=== PATIENT | male | born 1990 | race Two or more races ===

== ENCOUNTER 2024-07-22 23:04 | Emergency (ER) | payer OTHER ==
[~2024-07-22] VITALS: Ht 165.1 cm; Wt 53.2 kg
[2024-07-22] MEDS ORDERED: AZIT-43 PO (23:59)
[2024-07-22] MEDS ORDERED: PRED20TA2 PO (23:59)
--- NOTE | 2024-07-23 | ED.PDOC ---
SOB-HPI HPI Comments 34-YEAR-OLD MALE PRESENTS TO ER WITH COMPLAINTS OF COUGH X 10 DAYS. PATIENT REPORTS HE HAS BEEN EXPERIENCING PRODUCTIVE COUGH WITH YELLOW PHLEGM ALONG WITH CONGESTION X3 DAYS. REPORTS HE HAS BEEN TAKING [id number] MUCINEX FOR HIS SYMPTOMS WITHOUT RELIEF. DENIES ANY PAIN. PATIENT ALSO REPORTS HE HAS NOTICED INTERMITTENT EPISODES OF BLOOD-TINGED SPUTUM X3 DAYS. PATIENT PRESENTS TO ER AMBULATORY ON ARRIVAL, WITH STEADY GAIT, IN NO DISTRESS. DENIES FEVER, SHORTNESS OF BREATH, CHEST PAIN, PALPITATIONS, RECENT TRAVEL, HEADACHE, DIZZINESS, KNOWN EXPOSURE TO SICK CONTACTS, FATIGUE, NIGHT SWEATS, NAUSEA/VOMITING, SORE THROAT, NOSEBLEED, ABDOMINAL PAIN OR ANY FURTHER SYMPTOMS/COMPLAINTS Chief Complaint: Cough Time Seen by MD: 23:20 Primary Care Provider: UNKNOWN Reviewed notes: Nurses Notes, Medications, Allergies Information Source: Patient Mode of Arrival: Ambulatory Past Medical History PAST MEDICAL HISTORY: Denies Surgical History: Denies all surgeries Family History Family History: Unknown Social History Smoker: Other (NICOTINE VAPE) Alcohol: Denies ETOH Use Drugs: Marijuana Lives In: Home Constitutional: denies: chills, diaphoresis, fatigue, fever, malaise, sweats, weakness, others EENTM: reports: others (As stated in HPI) Respiratory: reports: others (As stated in HPI) Cardiovascular: denies: chest pain, dizzy spells, diaphoresis, Dyspnea on exertion, edema, irregular heart beat, left arm pain, lightheadedness, palpitations, PND, syncope, others Gastrointestinal: denies: abdomen distended, abdominal pain, blood streaked bowels, constipated, diarrhea, dysphagia, difficulty swallowing, hematemesis, melena, nausea, poor appetite, poor fluid intake, rectal bleeding, rectal pain, vomiting, others Genitourinary: denies: burning, dysuria, flank pain, frequency, hematuria, incontinence, penile discharge, penile sore, pain, testicle pain, testicle swelling, urgency, others Neurological: denies: dizziness, fainting, headache, left sided numbness, left sided weakness, numbness, paresthesia, pre-existing deficit, right sided numbness, right sided weakness, seizure, speech problems, tingling, tremors, weakness, others Musculoskeletal: denies: back pain, gout, joint pain, joint swelling, muscle pain, muscle stiffness, neck pain, others Integumetry: denies: bruises, change in color, change in hair/nails, dryness, laceration, lesions, lumps, rash, wounds, others Allergic/Immunocompromised: denies: Difficulty Healing, Frequent Infections, Hives, Itching, others Hematologic/Lymphatic: denies: anemia, blood clots, easy bleeding, easy bruising, swollen glands, others Endocrine: denies: excessive hunger, excessive sweating, excessive thirst, excessive urination, flushing, intolerance to cold, intolerance to heat, unexplained weight gain, unexplained weight loss, others Psychiatric: denies: anxiety, bipolar disorder, depression, hopeless, panic disorder, schizophrenia, sleepless, suicidal, others Physical Exam General Appearance: No Apparent Distress HEENT: Normal ENT Inspection, PERRL/EOMI, Pharynx Normal, TMs Normal Neck: Full Range of Motion, Non-Tender, Normal Respiratory: Chest Non-Tender, Lungs Clear, No Accessory Muscle Use, No Respiratory Distress, Normal Breath Sounds Cardiovascular: No Murmur, No Gallop, Regular Rate/Rhythm Breast Exam: Deferred Gastrointestinal: NOT DONE Genitalia: Deferred Pelvic: Deferred Rectal: Deferred Extremities: Normal capillary refill, Normal range of motion Neurologic: Alert, ink blender II-XII nml as Tested, No Motor Deficits, Normal Affect, Normal Mood, No Sensory Deficits Cerebellar Function: Normal Reflexes: Normal Skin: Dry, Normal Color, Warm Peripheral Pulses: 2+ Radial (R), 2+ Radial (L), 2+ Brachial (R), 2+ Brachial (L) Lymphatic: No Adenopathy Was a procedure done? Was a procedure done?: No Sedation Sedation?: No Differential Dx Differential Diagnosis: Pneumonia, Pulmonary Embolism, Respiratory Distress, Pharyngitis X-Ray, Labs, Meds, VS Vital Signs Date Time Temp Pulse Resp B/P (MAP) Pulse Ox O2 Delivery O2 Flow Rate FiO2 07/23/24 00:02 78 16 97 Room Air 07/23/24 00:02 99.0 78 16 144/90 (108) 97 99.0 07/22/24 23:39 99.0 78 16 144/90 (108) 97 07/22/24 23:39 16 97 Room Air* 0 21 Lab Test 07/23/24 00:08 Range/Units White Blood Count 6.7 4.4-10.8 10^3/uL Red Blood Count 5.23 4.5-5.90 10^6/uL Hemoglobin 16.0 13.5-17.5 g/dL Hematocrit 46.3 41.0-53.0 % Mean Corpuscular Volume 88.6 80.0-100.0 fL Mean Corpuscular Hemoglobin 30.5 28.0-32.0 pg Mean Corpuscular Hemoglobin Concent 34.4 32.0-36.0 g/dL Red Cell Distribution Width 12.5 11.8-14.3 % Platelet Count 270 140-450 10^3/uL Mean Platelet Volume 8.2 6.9-10.8 fL Neutrophils (%) (Auto) 63.3 37.0-80.0 % Lymphocytes (%) (Auto) 27.7 10.0-50.0 % Monocytes (%) (Auto) 7.9 0.0-12.0 % Eosinophils (%) (Auto) 0.7 0.0-7.0 % Basophils (%) (Auto) 0.4 0.0-2.0 % Neutrophils # (Auto) 4.2 1.6-8.6 10 ^3/uL Lymphocytes # (Auto) 1.9 0.4-5.4 10 ^3/uL Monocytes # (Auto) 0.5 0-1.3 10 ^3/uL Eosinophils # (Auto) 0 0-0.8 10 ^3/uL Basophils # (Auto) 0 0-0.2 10 ^3/uL Nucleated Red Blood Cells 0.0 % D-Dimer, Quantitative < 0.19 0.0-0.49 mg/L FEU Sodium Level 143 136-145 mmol/L Potassium Level 3.7 3.5-5.1 mmol/L Chloride Level 109 H 98-107 mmol/L Carbon Dioxide Level 29 20-31 mmol/L Anion Gap 5 5-15 Blood Urea Nitrogen 13 9-23 mg/dL Creatinine 0.69 L 0.700-1.30 mg/dL Glomerular Filtration Rate Calc 126 >90 mL/min BUN/Creatinine Ratio 18.8 10.0-20.0 Serum Glucose 108 H 74-106 mg/dL Calcium Level 9.8 8.7-10.4 mg/dL Current Medications Medications (Trade) Dose Ordered Sig/Joycelyn Route Start Time Stop Time Status Last Admin Ceftriaxone Sodium (Rocephin) 1,000 mg ONCE ONCE IM 07/23/24 00:00 07/23/24 00:02 DC 07/23/24 00:15 Methylprednisolone Sodium Succinate (Solu Medrol) 125 mg ONCE ONCE IM 07/23/24 00:00 07/23/24 00:02 DC 07/23/24 00:15 PATIENT: KALEE KUHN JACCT: [id number]: [id number] : 1990 LOC: ER ROOM / BED: / AGE / SEX: 34 / M ADM STATUS: REG ER SERVICE 2351 ORDERING PHYSICIAN: NADIA DOWLING PROCEDURE(s): CXR2 - CHEST TWO VIEWS ROUTINE REASON: COUGH ORDER NUMBER(s): [id number], ACCESSION NUMBER(s): [id number] CHEST RADIOGRAPH Indication: COUGH Technique: Frontal and lateral view of the chest was obtained Comparison: None FINDINGS: Lines and Tubes: None Lungs: Clear Pleura: No effusion. No pneumothorax. Cardiomediastinal contours: Unremarkable Bones: Unremarkable IMPRESSION: No evidence of acute disease. ATED BY: FRANK KEBEDE DO DICTATED DATE/TIME: 07/23/2412 SIGNED BY: FRANK KEBEDE DO SIGNED DATE/TIME: 07/23/2412 CC: CBC reviewed-normal BMP reviewed without any significant abnormalities D-dimer reviewed-normal Rocephin 1 g IM ordered Solu-Medrol 125 mg IM ordered Cannabis and vaping cessation discussed and advised Advised to drink plenty of fluids Patient reported improvement in symptoms and in no distress during ER visit/prior to discharge Advised to follow up with PCP in 1-2 days Patient verbalized understanding and agreeable with current plan of care Advised to return to ER immediately if symptoms worsen Images Reviewed?: Images reviewed and evaluated by me Time of 1ST Reevaluation: 23:52 Reevaluation 1ST: N/A Time of 2ND Reevaluation: 00:50 Reevaluation 2ND: Improved Patient Education/Counseling: Diagnosis, Treatment, Prognosis, Need For Follow Up Family Education/Counseling: No Family Present Departure 1 Departure Time of Disposition: 00:52 Impression: Primary Impression: Acute bronchitis Qualified Codes: J20.9 - Acute bronchitis, unspecified Disposition: HOME / SELF CARE / HOMELESS Condition: Stable e-Prescriptions Prednisone (Prednisone) 20 Mg Tab 20 MG PO BID for 5 Days, #10 TAB 0 Refills Prov: NADIA DOWLING 07/22/24 Azithromycin (Azithromycin) 250 Mg Tab 250 MG PO DAILY MDD 500 for 5 Days, #6 TAB 0 Refills 2 TABLETS ORALLY ON DAY ONE, THEN 1 TABLET ORALLY DAILY FOR 4 DAYS Prov: NADIA DOWLING 07/22/24 Discharged With: Self Critical Care Note Critical Care Time?: No Stability Stability form required: No Heart Score Heart Score: Heart Score Response (Comments) Value History N/A 0 EKG N/A 0 Age N/A 0 Risk Factors N/A 0 Troponin N/A 0 Total 0 NADIA DOWLING Jul 23, 2024 00:00
[2024-07-23 00:02] VITALS: BP 144/90; PULSE 78; RESP 16; TEMP 99; O2SAT 97
[2024-07-23] MEDS: cefTRIAXone SOD 1,000 MG VL IM ONE (00:15)
[2024-07-23] MEDS: methylPREDNISolone SOD SUCC 125 MG/2 ML VL IM ONE (00:15)
[2024-07-23 00:16] LABS: Basophils # (auto) 0 10 ^3/uL (0-0.2); Basophils % (auto) 0.4 % (0.0-2.0); Eosinophils # (auto) 0 10 ^3/uL (0-0.8); Eosinophils % (auto) 0.7 % (0.0-7.0); Hematocrit 46.3 % (41.0-53.0); Lymphocytes # (auto) 1.9 10 ^3/uL (0.4-5.4); Lymphocytes % (auto) 27.7 % (10.0-50.0); Mean Corpuscular Hemoglobin 30.5 pg (28.0-32.0); Mean Corpuscular Hgb Conc. 34.4 g/dL (32.0-36.0); Mean Corpuscular Volume 88.6 fL (80.0-100.0); Monocytes # (auto) 0.5 10 ^3/uL (0-1.3); Monocytes % (auto) 7.9 % (0.0-12.0); Neutrophils # (auto) 4.2 10 ^3/uL (1.6-8.6); Neutrophils % (auto) 63.3 % (37.0-80.0); Platelet Count (auto) 270 10^3/uL (140-450); Red Blood Cells 5.23 10^6/uL (4.5-5.90); Red Cell Distribution Width 12.5 % (11.8-14.3); White Blood Cell 6.7 10^3/uL (4.4-10.8)
--- NOTE | 2024-07-23 00:16 | DVH ---
CHEST RADIOGRAPH Indication: COUGH Technique: Frontal and lateral view of the chest was obtained Comparison: None FINDINGS: Lines and Tubes: None Lungs: Clear Pleura: No effusion. No pneumothorax. Cardiomediastinal contours: Unremarkable Bones: Unremarkable IMPRESSION: No evidence of acute disease.
[2024-07-23 00:24] LABS: Potassium 3.7 mmol/L (3.5-5.1); Sodium 143 mmol/L (136-145)
[2024-07-23 00:25] LABS: Anion Gap 5 (5-15); Calcium 9.8 mg/dL (8.7-10.4); Carbon Dioxide 29 mmol/L (20-31)
[2024-07-23 00:30] LABS: BUN/Creatinine Ratio 18.8 (10.0-20.0); Blood Urea Nitrogen 13 mg/dL (9-23)
[2024-07-23 00:31] LABS: Chloride 109 mmol/L (98-107); Glucose 108 mg/dL (74-106)
== END 2024-07-23 01:17 | disposition home or self-care (01) ==
LOC: ER 23:04
DX: J20.9 Acute bronchitis, unspecified (principal); F17.290 Nicotine dependence, other tobacco product, uncomplicated
CPT/HCPCS: 36415; 71046; 80048; 85025; 85379; 96372; 99284; J0696; J2919